=== PATIENT | male | born 1945 | race Caucasian/White ===

== ENCOUNTER 2019-08-01 09:37 | Inpatient (IN) ==
[2019-08-01] MEDS ORDERED: ASPIRIN PO ONE (09:39)
[2019-08-01] MEDS ORDERED: NITROGLYCERIN TOP ONE (10:08)
[2019-08-01] MEDS ORDERED: ZOFRAN IV ONE (10:08)
--- NOTE | 2019-08-01 10:14 | EKG Report ---
Test Performed on : 08/01/2019 09:39:36 AM Test Reason : CP Blood Pressure : / mmHG Vent. Rate : 053 BPM Atrial Rate : 053 BPM P-R Int : 156 ms QRS Dur : 094 ms QT Int : 454 ms P-R-T Axes : -10 -11 083 degrees QTc Int : 426 ms Sinus bradycardia. Nonspecific ST and T wave abnormality Abnormal ECG When compared with ECG of 30-MAR-2017 12:51, Vent. rate has decreased BY 39 BPM QRS axis shifted right QT has shortened Unconfirmed Result
--- NOTE | 2019-08-01 10:24 | Diag Imaging Result Doc PS360 ---
EXAM: CHEST-2 VIEWS 08/01/2019 HISTORY: CP TECHNIQUE: PA and lateral chest COMMENT: There is a Port-A-Cath on the right. The inspiration is suboptimal. Considering differences in inspiration and technique compared to 04/27/2018 there has been no appreciable change. IMPRESSION: Poor inspiration. Electronically signed by Chivo Lema 08/01/2019 10:22 AM
[2019-08-01 11:18] LABS: BASO# 0.01 X1000 (0.0-0.2); BASO% 0.1 % (0.0-0.8); EOS# 0.09 X1000 (0.0-0.7); EOS% 1.2 % (0.0-10.0); HEMATOCRIT 43.8 % (42.0-52.0); HEMOGLOBIN 14.3 g/dL (14.0-18.0); IMM GRAN# 0.03 X1000 (0.0-0.04); IMM GRAN% 0.4 % (0.0-0.5); LYMPH# 2.12 X1000 (1.2-3.4); LYMPH% 27.6 % (20.5-51.1); MCH 29.9 PG (27-31); MCHC 32.6 g/dL (33-37); MCV 91.4 FL (81-99); MONO# 0.81 X1000 (0.11-0.59); MONO% 10.5 % (1.7-9.3); MPV 9.9 FL (7.4-10.4); NEUT# 4.62 X1000 (1.4-6.5); NEUT% 60.2 % (42.2-75.2); PLT 221 X1000 (130-400); RBC 4.79 XMIL (4.7-6.1); RDW 13.8 % (11.5-14.5); WBC 7.68 X1000 (4.8-10.8)
[2019-08-01 11:23] LABS: INR 0.95; PROTIME 12.7 Seconds (11.0-16.0)
[2019-08-01 11:24] LABS: PTT 25.8 Seconds (22.3-41.8)
[2019-08-01 12:37] LABS: ALB/GLOB RATIO 1.8; ALBUMIN 4.2 g/dL (3.5-5.0); CALCIUM 9.3 mg/dL (8.8-10.2); CREATININE 1.5 mg/dL (0.7-1.2); POTASSIUM 4.1 mmol/L (3.5-5.1); TOTAL BILIRUBIN 0.34 mg/dL (0.20-1.00); TOTAL PROTEIN 6.5 g/dL (6.3-8.3)
[2019-08-01] MEDS ORDERED: MORPHINE IV ONE (12:43)
--- NOTE | 2019-08-01 13:14 | PROVIDER DOCUMENTATION ---
This chart was entered by Krystal Solorzano Scribe, acting as scribe for Pacheco Beltran MD. HPI-Chest Pain - General Chief Complaint: Chest Pain Stated Complaint: chest pain Time Seen by Provider: 08/01/19 09:52 Source: patient, EMS Allergies/Adverse Reactions: Patient Allergies Allergy/AdvReac Type Severity Reaction Status Date / Time povidone-iodine Allergy Intermediate HIVES Verified 08/01/19 10:14 [From Betadine] soap * [From Betadine] Allergy Intermediate HIVES Verified 08/01/19 10:14 shrimp Allergy Unknown Verified 08/01/19 10:14 Home Medications: Home Medication List Medication Instructions Recorded Confirmed Last Taken Type Aspirin [Aspirin EC] 81 mg PO DAILY 12/03/14 05/18/17 05/17/17 09:00 History 81 mg Cyanocobalamin (Vitamin B-12) 1,000 mg PO DAILY 12/03/14 05/18/17 05/08/17 History [Vitamin B-12] 500 mg Metformin HCl [Metformin ER 500 mg PO BID 12/03/14 05/18/17 07/31/19 History Osmotic] Ranitidine [Zantac] 150 mg PO BID 12/04/14 05/18/17 05/17/17 09:00 History 150 mg Ondansetron [Zofran Odt] 4 mg PO 4XDAY PRN PRN #20 03/30/17 05/18/17 05/05/17 Rx tab.rapdis Levothyroxine [Synthroid] 112 microgm PO DAILY@0700 #30 tab 04/04/17 05/18/17 05/17/17 09:00 Rx Acetaminophen [Tylenol] 650 mg AL Q6H PRN PRN supp 05/16/17 05/18/17 Unknown Rx Colesevelam [Welchol] 1,250 mg PO BID #40 tab 05/16/17 05/18/17 05/17/17 09:00 Rx Fludrocortisone [Florinef] 0.1 mg PO DAILY #30 tab 05/16/17 05/18/17 05/17/17 09:00 Rx Lactobacillus Rhamnosus GG 1 ea PO BID #60 cap 05/16/17 05/18/17 05/17/17 09:00 Rx [Culturelle] Prednisone 30 mg PO DAILY #20 tab 05/16/17 05/18/17 05/17/17 09:00 Rx 30 mg Vancomycin [Vancocin] 250 mg PO Q6HR #28 cap 05/16/17 05/18/17 05/17/17 16:00 Rx Amlodipine [Norvasc] 5 mg PO DAILY 08/01/19 08/01/19 07/31/19 History - History of Present Illness-CP Nature of Presenting Problem: 74yom presents to ED by EMS cc intermittent chest pain that radiates to bilateral arms, started last night while watching TV, got better after 1hr and then started again while having breakfast this morning. EMS reports pt c/o general malaise since the CP last night an when they arrived pt was pale, diapho retic so in route to ED pt was given 4 81mg aspirin, 0.4mg nitro which helped chest pain but not arm pain and 50 fentanyl which resolved all pain. Pt denies SOB. Pt is on a baby aspirin daily. Pt has had a cardiac stent placement 2yrs ago at [facility] and is followed by Dr. 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 Location: reports: central Chest Pain Radiation: reports: arms (bilateral) Severity in ED: mild Onset/Duration: 24 hours ago Timing: still present, intermittent Context/Activities at Onset: reports: light activity Modifying Factors: improves with: nothing Associated Symptoms: reports: diaphoresis Nitro Today/Relief: 0.4 mg x 1, provided by EMS Aspirin Treatment Today: 81 mg x 4, provided by EMS Prior Chest Pain/Cardiac Workup: reports: cardiac cath (with Stent placement 2yrs ago) Similar Symptoms Previously?: Yes Recently Seen Here or By Another Healthcare Provider: No Review of Systems - Adult - REVIEW OF SYSTEMS - ADULT Constitutional: reports: see HPI, fatique. denies: chills, fever Eyes: reports: no symptoms reported Ears, Nose, Mouth & Throat: reports: no symptoms reported Cardiovascular: reports: see HPI, chest pain. denies: syncope Respiratory: reports: see HPI. denies: shortness of breath, wheezing Gastrointestinal: reports: see HPI, nausea. denies: abdominal pain Genitourinary: reports: no symptoms reported Musculoskeletal: reports: no symptoms reported Integumentary: reports: no symptoms reported Neurological: reports: no symptoms reported Psychiatric: reports: no symptoms reported Endocrine: reports: no symptoms reported Hematologic/Lymphatic: reports: no symptoms reported Allergic/Immunologic: reports: no symptoms reported All Other Systems: Reviewed and Negative Past History - Adult - PAST MEDICAL HISTORY-ADULT Review of Records: reports: Nursing Assessment Review, Medications Reviewed, Social history reviewed & non-contributory. Major Childhood Illnesses: reports: denies history Cardiovascular: reports: HTN Respiratory: reports: denies history Gastrointestinal: reports: denies history Obstetrical/Gynecological: reports: denies history Genitourinary: reports: denies history Musculoskeletal: reports: denies history Neurological: reports: denies history Endocrine/Immune: reports: Diabetes Other Conditions: reports: denies history - PRIOR SURGERIES/PROCEDURES Surgical/Procedure History: reports: other (right eye prostetic) - IMMUNIZATION STATUS Childhood Immunizations: See Nurse Assessment Flu Vaccine: See Nurse Assessment - FAMILY HISTORY Family History: reviewed, not pertinent - SOCIAL HISTORY Smoking: denies Physical Exam-General - PHYSICAL EXAM-ADULT Initial Vital Signs Reviewed: Yes - CONSTITUTIONAL General Appearance: appears well, alert, no apparent distress, obese. negative: anxious, combative - EYES Eyes: PERRL/EOMI (prosthesis in right eye from previous eye cancer), pink conjunctivae. negative: photophobia - HEAD, EARS, NOSE, MOUTH & THROAT HENMT: normocephalic/atraumatic, moist mucous membranes. negative: angioedema - NECK Neck: supple, normal inspection - RESPIRATORY Respiratory: chest non-tender, lungs clear, normal breath sounds. negative: rhonchi, wheezing - CARDIOVASCULAR Cardiovascular: normal peripheral pulses, regular rate, rhythm, no edema. negative: bradycardia, tachycardia - GASTROINTESTINAL (ABDOMEN) Abdominal Exam: normal bowel sounds, non tender, soft. negative: guarding, rebound - MUSCULOSKELETAL Extremity: normal inspection, no pedal edema, no calf tenderness, normal capillary refill. negative: deformity - SKIN Integumentary: normal color, normal turgor. negative: diaphoresis, jaundice, rash - PSYCHIATRIC Psych/Mental Status: normal mood/affect, oriented x 3. negative: anxious, disheveled - HEART Score HEART Score: History: Moderately Suspicious HEART Score: ECG: Non-Specific Repolarization Disturbance/LBBB/PM HEART Score: Age: > or = 65 Years HEART Score: Risk Factors for Atherosclerotic Disease: 1 or 2 Risk Factors Progress - PLAN OF CARE/RESULTS Progress/Plan/Lab Results: Vital Signs - 8 hr 08/01/19 10:09 Temperature 98.4 F Pulse Rate 55 L Respiratory Rate 19 Blood Pressure 168/86 O2 Sat by Pulse Oximetry 94 L Laboratory Results - last 24 hr 08/01/19 08/01/19 08/01/19 10:35 10:35 10:35 WBC RBC Hgb Hct MCV MCH MCHC RDW Std Deviation Plt Count MPV Immature Gran % (Auto) Neut % (Auto) Lymph % (Auto) [place] % (Auto) Eos % (Auto) Baso % (Auto) Immature Gran # (Auto) Neut # (Auto) Lymph # (Auto) [place] # (Auto) Eos # (Auto) Baso # (Auto) PT INR PTT (Actin FS) Sodium 140 Potassium 4.1 Chloride 103 Carbon Dioxide 21 L Anion Gap 16 BUN 24 H Creatinine 1.5 H Estimated GFR/1.73 m2 46 BUN/Creatinine Ratio 16 Glucose 188 H Calculated Osmolality 288 Calcium 9.3 Total Bilirubin 0.34 AST 21 ALT 24 Alkaline Phosphatase 89 Creatine Kinase 51 Troponin T High Sens 64 H Bwc-I-Nyspwmuwqlm Pept 494 H Total Protein 6.5 Albumin 4.2 Globulin 2.3 Albumin/Globulin Ratio 1.8 08/01/19 08/01/19 10:35 10:35 WBC 7.68 RBC 4.79 Hgb 14.3 Hct 43.8 MCV 91.4 MCH 29.9 MCHC 32.6 L RDW Std Deviation 13.8 Plt Count 221 MPV 9.9 Immature Gran % (Auto) 0.4 Neut % (Auto) 60.2 Lymph % (Auto) 27.6 [place] % (Auto) 10.5 H Eos % (Auto) 1.2 Baso % (Auto) 0.1 Immature Gran # (Auto) 0.03 Neut # (Auto) 4.62 Lymph # (Auto) 2.12 [place] # (Auto) 0.81 H Eos # (Auto) 0.09 Baso # (Auto) 0.01 PT 12.7 INR 0.95 PTT (Actin FS) 25.8 Sodium Potassium Chloride Carbon Dioxide Anion Gap BUN Creatinine Estimated GFR/1.73 m2 BUN/Creatinine Ratio Glucose Calculated Osmolality Calcium Total Bilirubin AST ALT Alkaline Phosphatase Creatine Kinase Troponin T High Sens Rxe-F-Ovcsrznouka Pept Total Protein Albumin Globulin Albumin/Globulin Ratio Orders Category Date Time Status Cardiac Monitoring DIRECTED Care 08/01/19 09:40 Active Oxygen Therapy- ED Nursing DIRECTED Care 08/01/19 09:40 Active Saline Loc NOW Care 08/01/19 09:40 Active Heart Healthy Diet Diet 08/01/19 12:54 Active CHEST-2 VIEWS [RAD] Stat Exams 08/01/19 09:40 Completed CBC WITH ELECTRONIC DIFF [HEME] Stat Lab 08/01/19 10:35 Completed CK PROFILE [SP CHEM] Stat Lab 08/01/19 10:35 Completed COMPREHENSIVE METABOLIC PANEL [CHEM] Stat Lab 08/01/19 10:35 Completed PRO B-NATRIURETIC PEPTIDE Stat Lab 08/01/19 10:35 Completed PROTIME WITH INR [COAG] Stat Lab 08/01/19 10:35 Completed PTT [COAG] Stat Lab 08/01/19 10:35 Completed TROPONIN T HIGH SENSITIVITY Stat Lab 08/01/19 10:35 Completed Aspirin Med 08/01/19 09:39 Discontinued 325 mg PO NOW ONE Morphine Med 08/01/19 12:43 Discontinued 3 mg IV NOW ONE Nitroglycerin Med 08/01/19 10:08 Discontinued 0.5 inch TOP NOW ONE Ondansetron [Zofran] Med 08/01/19 10:08 Discontinued 4 mg IV NOW ONE CP/SOB/Palp >45 yrs of Age Stat Oth 08/01/19 09:39 Ordered EKG [EKG] Stat Ther 08/01/19 09:40 Draft Result Diagrams: 08/01/19 10:35 08/01/19 10:35 - EKG 1 Time of EKG reading by physician:: 09:39 EKG Read and Signed by:: Pacheco Beltran EKG Interpretation (*Must complete 3 of following elements*): Abnormal Rate: 53 Rhythm: Sinus Kyler Madison: normal ST Wave: non-specific ST changes 2 Time of EKG reading by physician:: 10:09 EKG Read and Signed by:: Pacheco Beltran EKG Interpretation (*Must complete 3 of following elements*): Abnormal (inferior infarct, age undetermined) Rate: 53 Rhythm: Sinus Kyler Madison: normal QRS: normal Prior EKG Comparison: unchanged from prior - XRAY 1 XRAY: Bilateral XRAY Study: Chest Impression: See EMR Report (IMPRESSION: Poor inspiration. Electronically signed by Chivo Lema 08/01/2019 10:22 AM) - CONSULTS/PCP/HOSPITALIST Notification #1 *Consult/PCP/Hospitalist*: Dr. Colón Time Discussed: 13:08 Consult Disposition: Admit Departure - Departure Date of Disposition Decision: 08/01/19 Time of Disposition Decision: 13:07 DIAGNOSIS: Acute coronary syndrome Disposition: ADMITTED INPATIENT 09 Certified Medical Emergency: Emergent Condition: Stable Referrals and Follow-Ups: Zachariah Colón MD [Primary Care Provider] - - Critical Care Note This patient required my direct & personal management of CC.: No Attestation - Physician/ BIANCA Attestation Patient care was provided by Advanced Practice Provider:: No The physician spent face to face time with patient:: Yes Advanced Practice Provider documentation review:: Supervising physician onsite and consulted in the evaluation and care of this patient. The physician did have a face to face encounter with the patient. This chart was documented by the indicated scribe, (Krystal Solorzano Scriblong) and accurately reflects the services I performed and decisions made by me, Pacheco Beltran MD, as attested by the provider's signature.
[2019-08-01] MEDS ORDERED: ZOFRAN ODT PO PRN (14:31)
[2019-08-01] MEDS ORDERED: TYLENOL PO PRN (14:31)
[2019-08-01] MEDS ORDERED: TYLENOL PR PRN (14:31)
[2019-08-01] MEDS ORDERED: ZOFRAN IV PRN (14:31)
[2019-08-01] MEDS: NITROGLYCERIN TOP SCH ×3 (15:03→21:10)
[2019-08-01 19:06] LABS: CK INDEX 11.2 (0.0-2.5); CK-MB 23.97 ng/mL (0.0-5.0)
[2019-08-01] MEDS: PREDNISONE PO SCH (19:06)
--- NOTE | 2019-08-01 20:40 | CARDIOLOGY CONSULTATION ---
DATE: 08/01/2019 CONSULTATION REQUESTED BY: Zachariah Colón MD REASON FOR CONSULTATION: Chest pain, possible acute coronary syndrome. HISTORY: Mr. Mcgowan presented to the emergency room on July 31 at about 9:00 in the morning, complaining of over 24 hours of sudden onset of chest pain. The patient said that he woke up on July 30, feeling fine, ate breakfast, sat down on a chair after breakfast and then he stretched his arms open and as he did that he experienced an intense substernal chest pain. This radiated to both arms. This went on for at least a couple of hours and then it seemed to diminish. He went out to a meeting that he had to have with a clay modeler. Getting out of the clay modeler's office, he felt weak. He was diaphoretic. He did not feel right. Later on that day, he continued to feel poorly and when he woke up this morning, he had again the same feeling and then he really got scared and decided to seek evaluation in the ER. In the ER, they did an EKG that shows sinus rhythm with a PVC. No acute ischemic changes are noted. Subsequent EKG done later on at 9:39 showed again sinus bradycardia without any acute changes. His high sensitivity troponin was checked only 1 time at 10:35 in the morning at 64 9 mg/L, which is borderline elevated. A proBNP level was 494 mcg/mL, which was mildly elevated. His BUN and creatinine are elevated at 24 and 1.5 mg/dL. A chest x-ray shows no congestion. There is some elevation of the right dome of the liver. Poor inspiration. The patient was given nitrates and oxygen and morphine and eventually the pain subsided. At this time, he is feeling fine. PAST MEDICAL HISTORY: Significant for acute myocardial infarction on 12/01/2017. At that time, they performed intervention to the mid right coronary artery with a stent. His vessel was diffusely diseased distally probably in the order of 1 mm with an additional 50% stenosis. His circumflex system also had critical stenosis; however, this was small in caliber, and his LAD showed also some moderate plaque. He has taken stress test on 09/18/2017, performed by Dr. Kirkland and he showed fixed basal inferolateral defect with no ischemia. His left ventricular ejection fraction at that time was normal. 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 Davis for a while. He has diabetes mellitus type 2, chronic kidney disease, hyperlipidemia, hypertension. PAST SURGICAL HISTORY: Cholecystectomy, knee surgery, and he had enucleation of the right eye 10 years ago for melanoma. SOCIAL HISTORY: He is single, retired. He retired from [employer]. Not a smoker or drinker. FAMILY HISTORY: Father had angina. Mother in her late 90s. ALLERGIES: He is allergic to povidone soap, shrimp. HOME MEDICATIONS: Include amlodipine 5 mg daily, ascorbic acid 1000 mg daily, aspirin 81 daily, bisoprolol/hydrochlorothiazide 5/6.25 daily, levothyroxine 137 mcg daily, metformin 1000 mg daily, Opdivo [address] Davis's instructions, omeprazole 40 mg twice a day, prednisone 5 mg daily. REVIEW OF SYSTEMS: The patient has good stamina. He remains active during the summer time, takes care of his yard. He has no limitation to physical activities up until the onset of the symptoms. No other positives. PHYSICAL EXAMINATION: Vital signs: Blood pressure 130/66, temperature 97.8 degrees, pulse 62, respirations 20. General: The patient is awake, alert, oriented. HEENT: Evidence of right eye enucleation. Neck: Veins are not distended. Carotid pulses are equal, symmetrical. There is no bruit. Chest: Clear to auscultation and percussion. Heart: Sounds are regular rhythmic. I do not hear a gallop or murmur. Abdomen: Nontender. No hepatomegaly. Extremities: Showed good pulses. No peripheral edema. Neurological exam: Follows commands. Moves 4 extremities. Negative for focal deficits. IMPRESSION: 1. Patient who has recurrent chest pain. This is consistent with angina pectoris. The patient presented with an unstable angina syndrome. He does have severe coronary heart disease, previous stent to right coronary artery for myocardial infarction. 2. Patient has metastatic melanoma from the eye into the liver, which has been stable for the past [address] Davis's office. 3. History of hypertension. 4. History of hyperlipidemia. 5. Diabetes mellitus type 2. 6. Patient has history of panhypopituitarism. This is being managed by the primary service. RECOMMENDATIONS: At this time, we will continue to trend his enzymes. We will keep him on all his usual cardiac medications. We will obtain a walking Lexiscan MPI study and a 2D echocardiogram. cc: MD Zachariah Cash MD MTDD
[2019-08-01] MEDS ORDERED: CULTURELLE PO SCH (21:00)
[2019-08-01] MEDS ORDERED: WELCHOL PO SCH (21:00)
[2019-08-01] MEDS: PEPCID PO SCH (21:12)
[2019-08-01] MEDS: MORPHINE IV PRN (21:17)
[2019-08-01] MEDS: HUMULIN R SUBQ SCH (21:18)
--- NOTE | 2019-08-01 21:59 | EKG Report ---
Test Performed on : 08/01/2019 9:36:19 PM Test Reason : chest pain Blood Pressure : / mmHG Vent. Rate : 062 BPM Atrial Rate : 062 BPM P-R Int : 172 ms QRS Dur : 094 ms QT Int : 450 ms P-R-T Axes : 028 -28 080 degrees QTc Int : 456 ms Normal sinus rhythm. Cannot rule out Inferior infarct , age undetermined Abnormal ECG When compared with ECG of 01-AUG-2019 09:39, (Unconfirmed) Minimal criteria for Inferior infarct are now present Confirmed by Juan Diego Crespo MD ([id number]) on 08/02/2019 8:11:24 PM
[2019-08-01 22:50] LABS: CK INDEX 11.1 (0.0-2.5); CK-MB 34.2 ng/mL (0.0-5.0)
[2019-08-02] MEDS: NITROGLYCERIN TOP SCH ×4 (03:11→21:23)
[2019-08-02] MEDS: MORPHINE IV PRN ×3 (05:34→17:48)
[2019-08-02] MEDS: SYNTHROID PO SCH ×2 (05:37→06:17)
--- NOTE | 2019-08-02 06:14 | EKG Report ---
Test Performed on : 08/02/2019 05:56:21 AM Test Reason : chest pain Blood Pressure : / mmHG Vent. Rate : 065 BPM Atrial Rate : 065 BPM P-R Int : 166 ms QRS Dur : 098 ms QT Int : 436 ms P-R-T Axes : 023 -11 085 degrees QTc Int : 453 ms Normal sinus rhythm. Normal ECG When compared with ECG of 01-AUG-2019 21:36, (Unconfirmed) No significant change was found Confirmed by Juan Diego Crespo MD ([id number]) on 08/02/2019 8:14:42 PM
[2019-08-02] MEDS: HUMULIN R SUBQ SCH ×4 (06:27→21:27)
[2019-08-02] MEDS ORDERED: SYNTHROID PO SCH (07:00)
[2019-08-02] MEDS ORDERED: PRILOSEC PO SCH (07:00)
[2019-08-02 07:07] LABS: CHOLESTEROL 161 mg/dL (0-200); HDL 27 mg/dL (35-55); LDL 96 mg/dL; TRIGLYCERIDES 191 mg/dL (39-160); VLDL 38 mg/dL
[2019-08-02 07:48] LABS: CK INDEX 11.7 (0.0-2.5); CK-MB 37.23 ng/mL (0.0-5.0)
--- NOTE | 2019-08-02 07:50 | HISTORY AND PHYSICAL ---
CHIEF COMPLAINT: Chest pain. HISTORY OF PRESENT ILLNESS: The patient is a 74-year-old white male with known coronary artery disease with a history of prior stents x2. He has been followed by Dr. Kirkland, his manufacturing applications engineer. He notes that yesterday in the morning he had some chest pains that were occurring anteriorly and lasted a couple of hours, and then he felt fairly well during the day and he was up and ambulatory and about town, and then he started feeling a little worse yesterday evening. He woke up this morning, and upon arising he noted recurrent chest pain anteriorly with some radiation into his lower neck and into the arm slightly, and he called for ambulance assistance. The patient had associated shortness of breath. MEDICATIONS: His medications prior to admission are: Welchol 625 mg 3 p.o. b.i.d., metformin ER 500 mg 2 p.o. b.i.d. with meals, Zantac 150 mg p.o. b.i.d., Norvasc 5 mg p.o. daily, Ziac 5/6.25 one p.o. every a.m., Plavix 75 mg p.o. daily, prednisone 7.5 mg p.o. daily, Synthroid 112 mcg p.o. daily, minocycline 50 mg p.o. daily, aspirin 81 mg daily, B12 at 1000 mg daily, D3 at 1000 international units daily, vitamin C 1000 mg daily. ALLERGIES: To iodine, shrimp, and Celebrex. PAST MEDICAL HISTORY: 1. History of metastatic melanoma to the liver diagnosed with metastasis to the liver in 2016 and placed on Opdivo with good results and followed by Dr. Davis for that. He has had the melanoma in the right eye dating back to 2007 when he had enucleation of the right eye at that time. 2. History of hypopituitarism diagnosed in March 2017, side-effect from the Opdivo, and under control and followed by Dr. Cabrera, manager of warehouse. 3. Coronary artery disease with history of 2 stents in the past 3 years. 4. Type 2 diabetes mellitus. 5. Dyslipidemia. 6. Chronic renal insufficiency. 7. Hypothyroidism. 8. Gout. 9. Dysmetabolic syndrome diagnosed in July 2002. 10. Hypertension diagnosed in 1999. 11. Gastroesophageal reflux disease. 12. Osteoarthritis. PAST SURGICAL HISTORY: 1. Right elbow surgery. 2. Left shoulder surgery. 3. Left hip ORIF. 4. Sinus surgery in 1997. 5. Right eye enucleation in 2007. 6. Hemorrhoid surgery in December 2015. 7. Cholecystectomy in 2006. IMMUNIZATIONS: Pneumovax 23 given on 02/07/2012, Prevnar 13 given in December 2015. FAMILY HISTORY: Notable for hypertension in his sister. SOCIAL HISTORY: The patient lives in [place]. He is single. Nonsmoker. Does not drink alcohol. 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 REVIEW OF SYSTEMS: Negative except as above. PHYSICAL EXAMINATION: VITAL SIGNS: See chart. Moderate obesity. SKIN: No rash. HEENT: Right eye enucleation noted. Left eye with extraocular movements intact. Oropharynx, no redness. Tongue in the midline. NECK: No LA, TMG, JVD, bruits. CARDIOVASCULAR: RRR without distinct murmur. LUNGS: CTA. BACK: NT. CHEST WALL: Nontender. ABDOMEN: Protuberant, soft, NT, ND. No mass. No HSM, but abdomen protuberant and large. GENITOURINARY/RECTAL: Deferred. EXTREMITIES: No calf tenderness, cords or edema. Peripheral pulses 2+/4 bilaterally. NEUROLOGIC: CN 2 through 12 intact. Nonfocal. DIAGNOSTIC DATA: Chest x-ray shows some poor inspiration, Port-A-Cath in place on the right. White count 7.68, hemoglobin 14.3, hematocrit 43.8, MCV 91, platelets 221,000, neutrophils 60, lymphocytes 27, monocytes 10, eosinophilic 1.2. PTT 25.8, PT 12.7, INR 0.9. A proBNP of 494, troponin high sensitivity 64, total CK 51. CMP normal with exception of BUN 24, creatinine 1.5, potassium 4.1. EKG, NSR without acute ST changes. ASSESSMENT: 1. Chest pain consistent with angina. 2. Known coronary artery disease with history of 2 stents. 3. Metastatic right eye melanoma, status post enucleation of the right eye and metastasis to the liver diagnosed November 2016, followed by Dr. Davis on Opdivo with good results. 4. Immune-mediated hypopituitarism thought related Opdivo. 5. Type 2 diabetes mellitus. 6. Hypertension. 7. Dyslipidemia. 8. Chronic renal insufficiency. 9. Hypothyroidism. 10. History of gout. 11. Obesity. 12. Gastroesophageal reflux disease. 13. Osteoarthritis. PLAN: We will admit the patient, obtain serial cardiac enzymes and troponin levels. Continue aspirin. Nitroglycerin paste has been started in the emergency room and continue his home medications, hold his metformin currently while obtaining serial Accu-Chek, and we will also give SSI as required. I spoke with Dr. Langston, who is on-call for Dr. Kirkland, and he recommends walking Lexiscan stress test and that will be obtained in the morning. I ordered that at his request and understand he plans on doing an echocardiogram as well. We will monitor in the PVC unit. We will give morphine as needed for pain. cc: Zachariah Colón MD
--- NOTE | 2019-08-02 08:22 | EKG Report ---
Test Performed on : 08/02/2019 07:06:21 AM Test Reason : cp Blood Pressure : / mmHG Vent. Rate : 064 BPM Atrial Rate : 064 BPM P-R Int : 174 ms QRS Dur : 104 ms QT Int : 434 ms P-R-T Axes : 035 -23 022 degrees QTc Int : 447 ms Normal sinus rhythm. Cannot rule out Inferior infarct , age undetermined Abnormal ECG When compared with ECG of 02-AUG-2019 05:56, (Unconfirmed) No significant change was found Confirmed by Juan Diego Crespo MD ([id number]) on 08/02/2019 8:17:42 PM
[2019-08-02 08:56] LABS: INR 1.03; PROTIME 13.6 Seconds (11.0-16.0)
[2019-08-02] MEDS ORDERED: FLORINEF PO SCH (09:00)
[2019-08-02] MEDS ORDERED: ASPIRIN PO SCH (09:00)
[2019-08-02] MEDS ORDERED: PREDNISONE PO SCH ×2 (09:00)
[2019-08-02] MEDS ORDERED: ZIAC 5/6.25 MG PO SCH (09:00)
[2019-08-02] MEDS ORDERED: NORVASC PO SCH (09:00)
[2019-08-02 09:09] LABS: PTT 27.6 Seconds (22.3-41.8)
--- NOTE | 2019-08-02 09:31 | CARDIOLOGY PROGRESS NOTE ---
DATE: 08/02/2019 CHIEF COMPLAINT: Chest pain. SUBJECTIVE: Mr. Mcgowan continues to have chest discomfort. His cardiac enzymes have become positive, all of them CPK and troponin. He continues to have pain on the right side of the sternum. OBJECTIVE: Vital signs: Blood pressure is 124/75, temperature 98.2 degrees, pulse 63, respirations 17. General: The patient is awake, alert, oriented, no distress. HEENT: Unremarkable. Chest: Sounds clear to auscultation and percussion. Heart: Sounds are regular and rhythmic. Systolic murmur over aortic area noted /. Abdomen: Nontender. Extremities: Showed no edema. Neurologic exam: Follows commands, moves all 4 extremities. A 12-lead EKG shows sinus rhythm with a posterior scar. BLOOD WORK: As I said, CPK went up to 317, CK-MB fraction to 37.2, index is 11.7%, troponin has sensitivity 356 ng/L. Cholesterol 161, LDL 96, HDL 27. IMPRESSION: 1. Patient with acute myocardial infarction non-ST. 2. Previous diagnosis of coronary heart disease, previous myocardial infarction in 2018, previous stent. 3. Metastatic melanoma, stable. 4. Chronic kidney dysfunction, mild. 5. History of hypertension and diabetes mellitus type 2. 6. Aortic stenosis, moderate per prior echo. RECOMMENDATIONS: At this time, the patient really needs to proceed with heart catheterization. He is still having chest pain and his cardiac enzymes are clearly abnormal. I explained to him the benefits, risks, and complications of the procedure. The patient is going to be started on IV bicarbonate to minimize the effect of dye on his kidneys. Echocardiogram is pending. Further advice will be forthcoming. Thank you for the opportunity to participate in his evaluation. cc: MD Zachariah Cash MD [facility]
[2019-08-02] MEDS: SODIUM BICARBONATE 8.4% 150 MEQ in D5W 1,000 ML IV SCH ×2 (09:37→23:40)
[2019-08-02] MEDS: PEPCID PO SCH ×2 (11:04→21:23)
[2019-08-02] MEDS: CENTRUM SILVER PO SCH ×2 (11:44→13:44)
[2019-08-02] MEDS: VITAMIN C PO SCH ×2 (11:45→13:46)
[2019-08-02] MEDS: VITAMIN B-12 PO SCH ×2 (11:45→13:44)
[2019-08-02] MEDS: PREDNISONE PO SCH ×2 (11:45→13:44)
[2019-08-02] MEDS: VITAMIN D PO SCH ×2 (11:46→13:46)
[2019-08-02] MEDS ORDERED: LOVENOX SUBQ ONE (12:37)
--- NOTE | 2019-08-02 13:46 | PROGRESS NOTE ---
DATE: 08/02/2019 SUBJECTIVE: Patient is stable and was seen in the nuclear stress lab area earlier this morning. Has had some right midsternal chest pain with radiation to the right arm and has had positive cardiac enzymes and troponin levels overnight. OBJECTIVE: Vital signs: Afebrile. Vital signs stable. Cardiovascular: RRR. No murmur. Lungs: CTA. Extremities: No edema. LABORATORY DATA: Reviewed. ASSESSMENT: 1. Myocardial infarction/fpi-MA-nqzalnoih myocardial infarction. 2. Coronary artery disease with history of stents x2 in the past. 3. Metastatic melanoma on Opdivo. 4. 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 5. Chronic renal insufficiency. 6. Hypertension. 7. Type 2 diabetes mellitus. 8. Hyperlipidemia. PLAN: I spoke with Cardiology regarding his situation and transferred his plan to [facility]. He is on nitroglycerin paste, aspirin. The resting stress test has been done. Continue serial Accu-Cheks with SSI as required. Lovenox has been added per Cardiology. cc: Zachariah Colón MD
--- NOTE | 2019-08-02 15:21 | Diag Imaging Result Document ---
PROCEDURE NAME: MYOCARDIAL PERFU SCAN, REST - 08/02/2019 STUDY: Resting gated myocardial perfusion study. INDICATION: Patient presented with chest pain, elevated cardiac enzymes, suspected non ST myocardial infarction. Previous stent to the right coronary artery. DESCRIPTION: The patient came into the nuclear lab and received a rest injection of technetium 99m sestamibi 14.7 mCi. Multiple tomographic views of the cardiac structures were obtained at rest. SUMMARY OF THE FINDINGS: Tomographic views of the left ventricle showed a mild to moderately extensive, moderate in severity, basal lateral to inferolateral defect. The polar plot shows the same. There is a basal lateral and basal inferolateral defect of moderate to severe degree, mild to moderately extensive. Gated SPECT shows overall preservation of the left ventricular ejection fraction of 65% with normal ventricular volumes. End systolic volume is 38 mL. The lung/heart ratio is normal at 0.38. CONCLUSION: In summary, this resting gated study shows a mild to moderately extensive basal lateral to inferolateral wall defect consistent with ischemia/infarction in the territory of the circumflex coronary artery. The left ventricular systolic function is preserved at 65%. Clinical correlation recommended. cc: Alexandre Langston MD
--- NOTE | 2019-08-02 18:11 | ECHO REPORT ---
ORDER DATE: 08/02/2019 INTERPRETING PHYSICIAN: Alexandre Langston MD. INDICATIONS: Chest pain. Non ST myocardial infarction. Previous stent to right coronary artery. History of metastatic melanoma to the liver. M-MODE MEASUREMENTS: Left ventricle end diastole: 4.5 cm. Left ventricle end systole: 3.4 cm. Posterior wall: 1.2 cm. Interventricular septum: 1.2 cm. Left atrium: 4.0 cm. Aortic diameter: 3.2 cm. SUMMARY OF 2-DIMENSIONAL IMAGIN. The study is difficult Left ventricular function appears to be normal overall. Ejection fraction is estimated at 58%. There is a focal area of impairment at the basal posterior wall of the left ventricle. All the other hanley show good contractility. The right ventricle appears to be at the upper limits of normal with good contractility. 2. The tricuspid valve shows mild degree of regurgitation. 3. The inferior vena cava is at the upper limits of normal. 4. Pulmonary pressure is estimated at 44 mmHg. 5. The mitral valve shows mild degree of regurgitation. 6. Pulse wave Doppler of mitral inflow shows reversal of the E and the A ratio. Ratio is 0.4. 7. The tissue Doppler of septal and lateral mitral annulus averages 6 cm. 8. There is impaired left ventricular relaxation. 9. The aortic valve is abnormal. It is calcified and it showed restricted opening. Color flow mapping show no significant regurgitation. The continuous wave Doppler across the aortic valve shows a maximum gradient of 52 mmHg and mean gradient of 29 mmHg. That would be consistent with moderate aortic stenosis. The aortic valve area is calculated at 1.1 cm2 using the continuity equation, which is consistent with moderate aortic stenosis. 10.There is no pericardial effusion, mass, and no thrombus. 11.The pulmonic valve is unremarkable. 12.The atria do not appear to be significantly enlarged. CONCLUSIONS: In summary, this study shows 1. Overall well preserved left ventricular systolic function with a focal area of wall motion abnormality in the basal posterior wall. 2. Moderate aortic stenosis. Valve area is 1.1 cm2. Mean gradient is 29 mmHg. 3. Pulmonary pressure is estimated at 44 mmHg. 4. Impaired left ventricular relaxation. Clinical correlation recommended. cc: MD Kathy Cash PA Stephen W. Harbin, MD
[2019-08-03] MEDS: NITROGLYCERIN TOP SCH (02:54)
[2019-08-03] MEDS: HUMULIN R SUBQ SCH (06:29)
[2019-08-03 06:45] VITALS: BP 128/76
== END 2019-08-03 07:25 | disposition short-term general hospital (02) | DRG 281 ==
LOC: SUPCPDRO → ED 09:37 → 2N 13:55
PROVIDERS: ADMIT Family Medicine; ATTEND Family Medicine